=== PATIENT | female | born 1930 | race Asian ===

== ENCOUNTER 2018-05-07 09:51 | Observation (INO) | payer MEDICAID, MEDICARE ==
--- NOTE | 2018-05-07 10:07 | ER Document Report ---
ED Medical Screen (RME) - General Chief Complaint: Nausea/Vomiting Stated Complaint: VOMITING/HEADACHE Time Seen by Provider: 05/07/18 09:58 Mode of Arrival: Wheelchair Information source: Relative Notes: This is an 87-year-old Georgian speaking woman who is brought in by her daughter because of agitation, vomiting. The patient was recently brought here 2 weeks ago from [place]. She is reportedly on a number of medicines and the daughter feels she was abusing those medicines prepped (particularly the sleeping pills) and the daughter states she is been up all night, yelling and screaming, searching for the sleeping pills. She also reports that her mother has had persistent vomiting and is not tolerating p.o. They also state that she has been complaining of a headache. The daughter is unable to tell me what medical problems the patient has. It does sound like there is some dementia and process. The daughter will be going home to get all of the medicines that the patient was on in [place]. She has no allergies. They deny any significant surgeries. They just started seeing Dr. Davis 2 weeks ago. I have greeted and performed a rapid initial assessment of this patient. A comprehensive ED assessment and evaluation of the patient, analysis of test results and completion of medical decision making process we will be contacted by additional ED providers. TRAVEL OUTSIDE OF THE [place] IN LAST 30 DAYS: No - Related Data Allergies/Adverse Reactions: No Known Allergies Allergy (Verified 05/07/18 09:52) Past Medical History - Social History Chew tobacco use (# tins/day): No Frequency of alcohol use: None Drug Abuse: None Renal/ Medical History: Denies: Hx Peritoneal Dialysis Physical Exam - Vital signs Vitals: Temp Pulse Resp BP Pulse Ox 97.9 F 81 16 125/72 97 05/07/18 09:58 05/07/18 09:58 05/07/18 09:58 05/07/18 09:58 05/07/18 09:58 Course - Vital Signs Vital signs: Temp Pulse Resp BP Pulse Ox 97.9 F 81 16 125/72 97 05/07/18 09:58 05/07/18 09:58 05/07/18 09:58 05/07/18 09:58 05/07/18 09:58 Doctor's Discharge - Discharge Referrals: LOCAL,NO [Primary Care Provider] - Follow up as needed
[2018-05-07] MEDS ORDERED: ONDANSETRON 4 MG TAB.RAPDIS PO ONE (10:08)
--- NOTE | 2018-05-07 10:40 | ER Document Report ---
ED General - General Chief Complaint: Nausea/Vomiting Stated Complaint: VOMITING/HEADACHE Time Seen by Provider: 05/07/18 09:58 Mode of Arrival: Wheelchair Information source: Patient, Relative Notes: 87-year-old female history of dementia and some type of lung mass presents having moved from [place] 2 weeks ago to live with daughters who note that she has been very agitated at nighttime threatening family members if she does not get her sleeping medication. Patient is noted to have some type of cardiac history but daughters are unsure exactly what They do note nausea vomiting. They state patient has headaches whenever she does not get her sleeping medication pt noted to be weak TRAVEL OUTSIDE OF THE [place] IN LAST 30 DAYS: No - HPI Onset: Last week Onset/Duration: Persistent Quality of pain: Cramping Severity: Mild Pain Level: 1 Associated symptoms: Headache, Nausea, Vomiting, Weakness Exacerbated by: Denies Relieved by: Other - sleeping medications Similar symptoms previously: No Recently seen / treated by doctor: No - Related Data Allergies/Adverse Reactions: No Known Allergies Allergy (Verified 05/07/18 09:52) Past Medical History - General Information source: Relative - Social History Smoking Status: Never Smoker Cigarette use (# per day): No Chew tobacco use (# tins/day): No Smoking Education Provided: No Frequency of alcohol use: None Drug Abuse: None Family History: Reviewed & Not Pertinent Patient has suicidal ideation: No Patient has homicidal ideation: No - Past Medical History Cardiac Medical History: Reports: Hx Hypercholesterolemia, Hx Hypertension Renal/ Medical History: Denies: Hx Peritoneal Dialysis Psychiatric Medical History: Reports: Hx Depression Review of Systems - Review of Systems Notes: REVIEW OF SYSTEMS: Per family members who are translating for her, they refused official translators CONSTITUTIONAL : Denies fever, chills, or sweats. Denies recent illness. EENT: Denies eye, ear, throat, or mouth pain or symptoms. Denies nasal or sinus congestion or discharge. Denies throat, tongue, or mouth swelling or difficulty swallowing. CARDIOVASCULAR: Denies chest pain. Denies palpitations or racing or irregular heart beat. Denies ankle edema. RESPIRATORY: Denies cough, cold, or chest congestion. Denies shortness of breath, difficulty breathing, or wheezing. GASTROINTESTINAL: admits ot nausea vomiting GENITOURINARY: Denies difficulty urinating, painful urination, burning, frequency, blood in urine, or discharge. FEMALE GENITOURINARY: Denies vaginal bleeding, heavy or abnormal periods, irregular periods. Denies vaginal discharge or odor. MUSCULOSKELETAL: Denies back or neck pain or stiffness. Denies joint pain or swelling. SKIN: Denies rash, lesions or sores. HEMATOLOGIC : Denies easy bruising or bleeding. LYMPHATIC: Denies swollen, enlarged glands. NEUROLOGICAL: afmits ot headache, weakness PSYCHIATRIC: Denies anxiety or stress. Denies depression, suicidal ideation, or homicidal ideation. ALL OTHER SYSTEMS REVIEWED AND NEGATIVE. PHYSICAL EXAMINATION: GENERAL: elderly female HEAD: Atraumatic, normocephalic. EYES: Pupils equal round and reactive to light, extraocular movements intact, conjunctiva are normal. ENT: Nares patent, oropharynx clear without exudates. Moist mucous membranes. NECK: Normal range of motion, supple without lymphadenopathy LUNGS: Breath sounds clear to auscultation bilaterally and equal. No wheezes rales or rhonchi. HEART: Regular rate and rhythm without murmurs ABDOMEN: Soft, nontender, nondistended abdomen. No guarding, no rebound. No masses appreciated. Female : deferred Musculoskeletal: Normal range of motion, no pitting or edema. No cyanosis. NEUROLOGICAL: Cranial nerves grossly intact. Normal speech, normal gait. Normal sensory, motor exams pt noted to be weak, did feel unable to stand for xray PSYCH: Normal mood, normal affect. SKIN: Warm, Dry, normal turgor, no rashes or lesions noted. Dictation was performed using [employer] voice recognition software Physical Exam - Vital signs Vitals: Temp Pulse Resp BP Pulse Ox 97.9 F 81 16 125/72 97 05/07/18 09:58 05/07/18 09:58 05/07/18 09:58 05/07/18 09:58 05/07/18 09:58 Course - Re-evaluation Re-evalutation: 05/07/18 10:39 Significant T-wave inversions are noted, I am attempting to get records from hospital in [facility] 05/07/18 11:02 Medical records is closed on weekends, contacted ED physician, noted admission march 2018 admission for cardiac cath noting no significant stenosis. EJ fraction 68%, 2cm nodule opacity left lower lung. small pleural effusion on the right . diabetes, htn, siadh, hyperlipidemia, lung mass is stable since 2014, did not feel needed a biopsy, recommend pet scan in the future ekg 03/2018 NOTED T WAVE INVERSION IN I, avl, V4-v6, biphasic t wave in v2-v3 - Vital Signs Vital signs: Temp Pulse Resp BP Pulse Ox 98.6 F 81 16 127/78 H 97 05/07/18 14:20 05/07/18 15:12 05/07/18 15:12 05/07/18 14:20 05/07/18 15:12 - Laboratory Result Diagrams: 05/07/18 11:15 05/07/18 11:15 Laboratory results interpreted by me: 05/07/18 11:15 Sodium 134.7 L Chloride 90 L Carbon Dioxide 32 H - Diagnostic Test Radiology reviewed: Image reviewed, Reports reviewed - EKG Interpretation by Wi EKG shows normal: Sinus rhythm, Independence, Intervals, QRS Complexes - Inverted t waves deep in V2-V4 Discharge - Discharge Clinical Impression: T wave inversion in EKG Headache Qualifiers: Headache type: unspecified Headache chronicity pattern: unspecified pattern Intractability: not intractable Qualified Code(s): R51 - Headache Fatigue Qualifiers: Fatigue type: unspecified Qualified Code(s): R53.83 - Other fatigue Condition: Stable Disposition: ADMITTED OBSERVATION Admitting Provider: Hospitalist Unit Admitted: Telemetry
--- NOTE | 2018-05-07 10:47 | RADIOLOGY REPORT (SQ) ---
EXAM DESCRIPTION: CT HEAD WITHOUT COMPLETED DATE/TIME: 05/07/2018 10:36 am REASON FOR STUDY: encephalopathy COMPARISON: None. TECHNIQUE: Axial images acquired through the brain without intravenous contrast. Images reviewed wi th bone, brain and subdural windows. Images stored on PACS. All CT scanners at this facility use dose modulation, iterative reconstruction, and/or weight based d osing when appropriate to reduce radiation dose to as low as reasonably achievable (ALARA). [facility]: Dose Right [facility]: CareDose [facility]: Dose Right [facility]: Teradose 4D [facility]: Smart Farmeron RADIATION DOSE: CT Rad equipment meets quality standard of care and radiation dose reduction techniq ues were employed. CTDIvol: 53.2 mGy. DLP: 1017 mGy-cm. mGy. LIMITATIONS: None. FINDINGS: VENTRICLES: Normal size and contour. CEREBRUM: No masses. No hemorrhage. No midline shift. No evidence for acute infarction. There is e vidence of confluent areas of decreased attenuation in subcortical and periventricular white matter c onsistent with chronic white matter change. . No areas of low density in the white matter. CEREBELLUM: No masses. No hemorrhage. No alteration of density. No evidence for acute infarction. EXTRAAXIAL SPACES: No fluid collections. No masses. ORBITS AND GLOBE: No intra- or extraconal masses. Normal contour of globe without masses. CALVARIUM: No fracture. PARANASAL SINUSES: There is evidence of extensive mucosal thickening in the left maxillary sinus with calcification. These findings can be seen with chronic sinusitis and/or fungal sinusitis. Minimal mucosal thickening in the sphenoid sinus. SOFT TISSUES: No mass or hematoma. OTHER: No other significant finding. IMPRESSION: CHANGES OF CHRONIC SINUSITIS. CHRONIC WHITE MATTER CHANGE. OTHERWISE, NORMAL CT OF HEA D WITHOUT CONTRAST. EVIDENCE OF ACUTE STROKE: NO. COMMENT: Quality ID # [id number]: Final reports with documentation of one or more dose reduction techniques (e.g., Automated exposure control, adjustment of the mA and/or kV according to patient size, use of iterative reconstruction technique) TECHNICAL DOCUMENTATION: JOB ID: [id number] [employer]- All Rights Reserved Reading location - IP/workstation name: [email or web address]
[2018-05-07 11:28] LABS: ABSOLUTE BASOPHILS # (AUTO) 0.1 10^3/uL (0.0-0.2); ABSOLUTE EOSINOPHILS # (AUTO) 0.1 10^3/uL (0.0-0.6); ABSOLUTE MONOCYTES (AUTO) 0.5 10^3/uL (0.1-1.4); ABSOLUTE NEUT (AUTO) 6.3 10^3/uL (1.7-8.2); BASOPHILS % (AUTO) 0.6 % (0-2); EOSINOPHILS % (AUTO) 1.3 % (0-6); HEMATOCRIT 36.5 % (36.0-47.0); HEMOGLOBIN 12.9 g/dL (12.0-15.5); LYMPHOCYTES % (AUTO) 22.7 % (13-45); MEAN CORPUSCULAR HEMOGLOBIN 31.5 pg (27.0-33.4); MEAN CORPUSCULAR HGB CONC 35.4 g/dL (32.0-36.0); MEAN CORPUSCULAR VOLUME 89 fl (80-97); MONOCYTES % (AUTO) 5.8 % (3-13); PLATELET COUNT 410 10^3/uL (150-450); RED BLOOD COUNT 4.11 10^6/uL (3.72-5.28); RED CELL DISTRIBUTION WIDTH 13.9 % (11.5-14.0); SEGMENTED NEUTROPHILS % (AUTO) 69.6 % (42-78); TOTAL CELLS COUNTED % (AUTO) 100 %
[2018-05-07 11:43] LABS: AMORPHOUS SEDIMENT,URINE TRACE /HPF; APPEARANCE,URINE CLEAR; BILIRUBIN,URINE NEGATIVE (NEGATIVE); COLOR,URINE YELLOW; GLUCOSE, URINE NEGATIVE (NEGATIVE); KETONES,URINE NEGATIVE (NEGATIVE); LEUKOCYTE ESTERASE,URINE NEGATIVE (NEGATIVE); NITRITE,URINE NEGATIVE (NEGATIVE); PROTEIN,URINE NEGATIVE (NEGATIVE); URINE SPECIFIC GRAVITY 1.008; UROBILINOGEN,URINE NEGATIVE mg/dL (<2.0)
[2018-05-07 11:45] LABS: ALANINE AMINOTRANSFERASE 23 U/L (9-52); ALBUMIN 4.4 g/dL (3.5-5.0); ALKALINE PHOSPHATASE 76 U/L (38-126); ANION GAP 13 (5-19); ASPARTATE AMINO TRANSFERASE 26 U/L (14-36); BILIRUBIN,DIRECT 0.3 mg/dL (0.0-0.4); BILIRUBIN,TOTAL 0.8 mg/dL (0.2-1.3); BLOOD UREA NITROGEN 9 mg/dL (7-20); CALCIUM 10.1 mg/dL (8.4-10.2); CARBON DIOXIDE 32 mmol/L (22-30); CHLORIDE 90 mmol/L (98-107); CREATINE KINASE 97 U/L (30-135); GLUCOSE 95 mg/dL (75-110); POTASSIUM 3.7 mmol/L (3.6-5.0); SODIUM 134.7 mmol/L (137-145); TOTAL PROTEIN 7.5 g/dL (6.3-8.2)
[2018-05-07 11:56] LABS: CREATINE KINASE MB 1.23 ng/mL (<4.55)
--- NOTE | 2018-05-07 11:59 | RADIOLOGY REPORT (SQ) ---
EXAM DESCRIPTION: CHEST SINGLE VIEW COMPLETED DATE/TIME: 05/07/2018 11:30 am REASON FOR STUDY: encephalopathy, vomiting COMPARISON: None. FINDINGS: Single frontal view PA chest image. Focal density adjacent to the left heart border, suspicious for a small mass. Mild blunting right la teral costophrenic angle, acuity indeterminate. Potential small effusion. Osteopenia. No fracture or bone lesion evident. Normal heart size. IMPRESSION: Small left upper lobe mass, concerning for malignancy. TECHNICAL DOCUMENTATION: JOB ID: [id number] Reading location - IP/workstation name: [email or web address]
[2018-05-07 12:02] LABS: TROPONIN I < 0.012 ng/mL
[2018-05-07] MEDS ORDERED: LEVALBUTEROL HCL NEB 1.25 MG/3 ML AMPUL NEB PRN (14:16)
[2018-05-07] MEDS ORDERED: MAGNESIUM HYDROXIDE SUSP 30 ML UDCUP PO PRN (14:25)
[2018-05-07] MEDS ORDERED: MAG HYDROX/AL HYDROX/SIMETH SUSP 30 ML UDCUP PO PRN (14:25)
[2018-05-07] MEDS ORDERED: ONDANSETRON 4 MG TAB.RAPDIS PO PRN (14:25)
--- NOTE | 2018-05-07 15:09 | PDOC H&P ---
History of Present Illness Admission Date/PCP: Dr. Parmar Patient complains of: Headache History of Present Illness: BLOSSOM MUNOZ is a 87 year old female with limited known past medical history secondary to patient and family being poor historians. Emergency department provider was able to contact a hospital in [place] where the patient recently moved from; have verified patient has past medical history of hypertension, hyperlipidemia, diabetes, SIADH, stable lung mass (since 2014) who recently underwent cardiac catheterization in March 2018 with no significant stenosis and an ejection fraction of 68%. The patient and daughter are seen using [facility] services. The patient reports that she has felt fatigued 1 day. She reports occasional headache. She also reports intermittent nausea, without emesis, that is relieved by lying down. She denies dizziness or weakness on standing or when ambulating. She denies recent acute illness, fever, chills, chest pain, palpitation, dyspnea, cough, abdominal pain, vomiting, diarrhea and constipation. The daughter is unable to provide any further HPI. Per emergency department staff and provider, there is some concern with regard to her dependence/abuse of prescribed sleeping medications. Apparently the patient becomes agitated when these are not provided to her and the daughters have been actively working towards reducing her medications. The ED provider also reports that staff told him that the patient became weak while obtaining chest x-ray and needed assistance to sitting; the patient denies this (some question as to whether or not she has dementia that may prevent her from being able to recall). Per nursing, the patient has also been independently ambulatory x50 feet. Evaluation in the emergency department is unremarkable other than market deep T- wave inversions to V2-5. Otherwise, CBC, BMP, troponin, and urinalysis are unremarkable and head CT revealed chronic sinusitis and chronic microvascular changes. She is referred to the hospitalist service for headache, fatigue, gait instability. Past Medical History Past Medical History: Limited secondary to poor historian Cardiac Medical History: Reports: Hyperlipidema, Hypertension Pulmonary Medical History: Reports: None EENT Medical History: Reports: None Neurological Medical History: Reports: None Endocrine Medical History: Reports: Diabetes Mellitus Type 2 Renal/ Medical History: Reports: None Malignancy Medical History: Reports: Other - Left lung nodule; stable since 2014 GI Medical History: Reports: None Musculoskeltal Medical History: Reports: None Skin Medical History: Reports: None Psychiatric Medical History: Reports: Dementia - Probable, Depression, Other - Prescription medication abuse Hematology: Reports: None Infectious Medical History: Reports: None Past Surgical History Past Surgical History: Reports: Cardiac Catheterization - March 2018; no stenosis Social History Information Source: Patient, Relative, Emergency Med Personnel Lives with: Family Smoking Status: Never Smoker Frequency of Alcohol Use: None Hx Recreational Drug Use: No Hx Prescription Drug Abuse: No Family History Family History: Unable to obtain secondary to poor historian; patient and family member do not know patient's family medical history. Parental Family History Reviewed: No - Unable to obtain Children Family History Reviewed: No Sibling(s) Family History Reviewed.: No Medication/Allergy Allergies/Adverse Reactions: No Known Allergies Allergy (Verified 05/07/18 09:52) Review of Systems Constitutional: PRESENT: fatigue, headache(s), weakness. ABSENT: chills, fever( s), weight gain, weight loss Eyes: ABSENT: visual disturbances Ears: ABSENT: hearing changes Cardiovascular: ABSENT: chest pain, dyspnea on exertion, edema, orthropnea, palpitations Respiratory: ABSENT: cough, hemoptysis Gastrointestinal: PRESENT: nausea. ABSENT: abdominal pain, constipation, diarrhea, hematemesis, hematochezia, vomiting Genitourinary: ABSENT: dysuria, hematuria Musculoskeletal: ABSENT: joint swelling Integumentary: ABSENT: rash, wounds Neurological: ABSENT: abnormal gait, abnormal speech, confusion, dizziness, focal weakness, syncope Psychiatric: ABSENT: anxiety, depression, homidical ideation, suicidal ideation Endocrine: ABSENT: cold intolerance, heat intolerance, polydipsia, polyuria Hematologic/Lymphatic: ABSENT: easy bleeding, easy bruising Physical Exam Vital Signs: Temp Pulse Resp BP Pulse Ox 97.9 F 81 16 125/72 97 05/07/18 09:58 05/07/18 09:58 05/07/18 10:20 05/07/18 09:58 05/07/18 09:58 Intake & Output 05/06/18 05/07/18 05/08/18 06:59 06:59 06:59 Weight 53.9 kg General appearance: PRESENT: no acute distress, hard of hearing, well-developed , well-nourished, other Head exam: PRESENT: atraumatic, normocephalic Eye exam: PRESENT: conjunctiva pink, EOMI, PERRLA. ABSENT: scleral icterus Mouth exam: PRESENT: moist, tongue midline Neck exam: ABSENT: carotid bruit, JVD, lymphadenopathy, thyromegaly Respiratory exam: PRESENT: clear to auscultation jose, symmetrical, unlabored. ABSENT: rales, rhonchi, wheezes Cardiovascular exam: PRESENT: RRR, +S1, +S2. ABSENT: diastolic murmur, rubs, systolic murmur Pulses: PRESENT: normal dorsalis pedis pul Vascular exam: PRESENT: normal capillary refill GI/Abdominal exam: PRESENT: normal bowel sounds, soft. ABSENT: distended, guarding, mass, organolmegaly, rebound, tenderness Rectal exam: PRESENT: deferred Extremities exam: PRESENT: full ROM. ABSENT: calf tenderness, clubbing, pedal edema Neurological exam: PRESENT: alert, awake, oriented to person, oriented to place , oriented to time, oriented to situation, CN II-XII grossly intact, other - Orientation was difficult to assess despite use of beaming machine operator; appears to be easily confused and forgetful.. ABSENT: motor sensory deficit Psychiatric exam: PRESENT: flat affect, other - Difficult to assess secondary to cultural differences. ABSENT: homicidal ideation, suicidal ideation Skin exam: PRESENT: dry, intact, warm. ABSENT: cyanosis, rash Results Laboratory Results: 05/07/18 11:15 05/07/18 11:15 05/07/18 05/07/18 05/07/18 11:12 11:15 11:15 WBC 9.0 RBC 4.11 Hgb 12.9 Hct 36.5 MCV 89 MCH 31.5 MCHC 35.4 RDW 13.9 Plt Count 410 Seg Neutrophils % 69.6 Lymphocytes % 22.7 Monocytes % 5.8 Eosinophils % 1.3 Basophils % 0.6 Absolute Neutrophils 6.3 Absolute Lymphocytes 2.0 Absolute Monocytes 0.5 Absolute Eosinophils 0.1 Absolute Basophils 0.1 Sodium 134.7 L Potassium 3.7 Chloride 90 L Carbon Dioxide 32 H Anion Gap 13 BUN 9 Creatinine 0.62 Est GFR ( Amer) > 60 Est GFR (Non-Af Amer) > 60 Glucose 95 Calcium 10.1 Magnesium 2.1 Total Bilirubin 0.8 AST 26 ALT 23 Alkaline Phosphatase 76 Total Protein 7.5 Albumin 4.4 Urine Color YELLOW Urine Appearance CLEAR Urine pH 7.0 Ur Specific [place] 1.008 Urine Protein NEGATIVE Urine Glucose (UA) NEGATIVE Urine Ketones NEGATIVE Urine Blood NEGATIVE Urine Nitrite NEGATIVE Ur Leukocyte Esterase NEGATIVE Urine WBC (Auto) 0 Urine RBC (Auto) 0 05/07/18 05/07/18 11:15 11:15 Creatine Kinase 97 CK-MB (CK-2) 1.23 Troponin I < 0.012 Impressions: Chest X-Ray 05/07/18 10:07 IMPRESSION: Small left upper lobe mass, concerning for malignancy. Head CT 05/07/18 10:07 IMPRESSION: CHANGES OF CHRONIC SINUSITIS. CHRONIC WHITE MATTER CHANGE. OTHERWISE, NORMAL CT OF HEAD WITHOUT CONTRAST. EVIDENCE OF ACUTE STROKE: NO. Assessment & Plan - Diagnosis (1) Fatigue Qualifiers: Fatigue type: unspecified Qualified Code(s): R53.83 - Other fatigue Is this a current diagnosis for this admission?: Yes Plan: The patient reports fatigue. Despite use of beaming machine operator; is difficult to obtain clear HPI and the daughter is unable to provide any further information. There is a report of potential sleeping medication abuse. The patient also appears to have difficulty with organized thinking; becoming easily confused and forgetful. Fatigue may be related to age, heart conditions (unknown if patient has CHF although does not appear to have acute decompensation at present), medication interactions/side effects, medication overuse, hypothyroidism, depression, dementia, etc. CBC and BMP are unremarkable EKG shows normal sinus with some nonspecific T-wave changes. Head CT demonstrated chronic sinusitis and microvascular changes. Patient is admitted to the medical floor on continuous cardiac telemetry. Will obtain TSH with a.m. labs. Will rule out drug abuse; obtain UDS. We will resume patient's medications once reconciled; assessing for side effects and interactions. PT/OT consultation has been ordered. Provide for patient safety. (2) Headache Qualifiers: Headache chronicity pattern: unspecified pattern Intractability: not intractable Is this a current diagnosis for this admission?: Yes Plan: Patient and daughter report intermittent headache, primarily related to lack of (presumed) Ambien use. The patient is unable to describe the quality, location , intensity, exacerbating or alleviating factors of her headache. CBC and BMP are unremarkable EKG shows normal sinus with some nonspecific T-wave changes. Head CT demonstrated chronic sinusitis and microvascular changes. Patient is admitted to the medical floor on continuous cardiac telemetry. Will obtain TSH with a.m. labs. As the patient has a known lung nodule, will obtain MRI of the brain. Supportive care: Analgesics and antiemetics as needed. Avoid opiate medications (potential for rebound headache) and sedatives/ benzodiazepines. (3) Chronic sinusitis Qualifiers: Sinusitis location: maxillary Qualified Code(s): J32.0 - Chronic maxillary sinusitis Is this a current diagnosis for this admission?: Yes Plan: Likely contributing to headache. Mucosal thickening and calcifications of the maxillary sinuses were noted by head CT. We will provide the patient normal saline spray for comfort. Start Flonase. Tylenol as needed for pain. Avoid opiates. Consider antihistamines. Outpatient ENT follow-up. (4) T wave inversion in EKG Is this a current diagnosis for this admission?: Yes Plan: EKG demonstrated marketed T-wave inversions in V2-5. No previous EKGs are available for direct comparison. However, ED physician did reach out to a hospital in [place] where the patient was recently seen. Per ED provider's report, there may be some nonspecific T-wave changes since March 2018. The patient underwent cardiac catheterization March 2018; no significant stenosis were identified and no stents placed. LVEF noted to be 68%. Chest x-ray today is benign. CK, CK-MB, troponin are all negative. Patient denies active or recent chest pain, dyspnea, orthopnea. Will monitor on telemetry. Resume home cardiac medications once reconciled. (5) Lung nodule Is this a current diagnosis for this admission?: Yes Plan: Per ED report, he has confirmed the left lung nodule has been present and stable since 2014. It appears that a previous provider (located in [place]) is recommended outpatient follow-up with a PET scan. Patient is being evaluated with a head MRI; will rule out metastasis to the brain. We will provide the patient and family members a referral to oncology for outpatient follow-up. (6) Sedative or hypnotic abuse Is this a current diagnosis for this admission?: Yes Plan: Per nursing staff, the patient's family members reported a recent history of sleeping medication abuse. The patient has been moved from [place] to live here with her daughters and ordered for the daughters to manage the medications. Since that time, the patient has been agitated and confrontational with a limit her access to her sleeping medications. Otherwise , the patient remains fatigued and complains of headaches, weakness, and nausea when her medication is withheld. Patient has been in [place] for approximately 2 weeks; it is unlikely that she is still experiencing withdrawal. I am more inclined to think that the patient may be suffering from depression. Unfortunately, full psychiatric assessment is very difficult due to language barrier and cultural differences. Initial impression also leads me to think that the patient may have some underlying dementia. Avoid opiates, benzodiazepines, and hypnotic/sedatives. We will trial trazodone. Consider psychiatric evaluation. - Time Time Spent: 50 to 70 Minutes Medications reviewed and adjusted accordingly: Yes Anticipated discharge: Home Within: within 24 hours
--- NOTE | 2018-05-07 15:35 | RADIOLOGY REPORT (SQ) ---
EXAM DESCRIPTION: MRI HEAD WITHOUT COMPLETED DATE/TIME: 05/07/2018 3:17 pm REASON FOR STUDY: headache COMPARISON: None. TECHNIQUE: Multiplanar imaging includes non-contrasted T1, T2, FLAIR, and Diffusion with ADC map seq uences. Images stored on PACS. LIMITATIONS: Some of the sequences are moderately limited by motion. FINDINGS: ANATOMY: No anomalies. Normal vascular flow voids. Pituitary fossa normal. CSF SPACES: Normal in size and contour. No hemorrhage. CEREBRUM: A few high-signal intensity lesions scattered throughout the white matter on FLAIR imaging with distribution suggesting chronic micro-vascular ischemic change. Sulci and gyri normal in size a nd contour. No evidence of hemorrhage, mass or extraaxial fluid collection. POSTERIOR FOSSA: No signal alteration. No hemorrhage. No edema, masses or mass effect. Internal fatoumata tory canals, cerebello-pontine angles, mastoids normal. DIFFUSION: Small intermediate T1 slightly hyperintense T2 mass with suggested dural tail along the ri ght aspect of the clivus. Potential meningioma. No mass effect on regional structures. ORBITS: No masses. Globes normal. PARANASAL SINUSES: Mucosal thickening, most notable in the left maxillary sinus. No fluid levels. OTHER: No other significant finding. IMPRESSION: 1. No recent CVA. No acute abnormality detected. Mild small vessel disease. 2. Potent ial meningioma along the right skullbase. Doubtful clinical significance. Further evaluation with p ost IV contrast imaging may prove helpful to confirm the lesion. Given the patient's limited coopera tion and ability to remain still during MRI, post contrast CT may be a better option for further imag ing. 3. Chronic appearing paranasal sinus disease. EVIDENCE OF ACUTE STROKE: NO. TECHNICAL DOCUMENTATION: JOB ID: [id number] [employer]- All Rights Reserved Reading location - IP/workstation name: [email or web address]
[2018-05-07 15:55] LABS: URINE AMPHETAMINES SCREEN NEGATIVE; URINE BARBITURATES SCREEN NEGATIVE; URINE BENZODIAZEPINES SCREEN NEGATIVE; URINE COCAINE SCREEN NEGATIVE; URINE MARIJUANA (THC) SCREEN NEGATIVE; URINE METHADONE SCREEN NEGATIVE; URINE PHENCYCLIDINE SCREEN NEGATIVE
[2018-05-07] MEDS ORDERED: LORAZEPAM 1 MG TABLET PO PRN (18:02)
--- NOTE | 2018-05-07 19:40 | RADIOLOGY REPORT (SQ) ---
EXAM DESCRIPTION: MRI HEAD WITH COMPLETED DATE/TIME: 05/07/2018 6:41 pm REASON FOR STUDY: headache, dizziness, f/u new meningioma COMPARISON: Noncontrast study from earlier today. TECHNIQUE: Multiplanar imaging includes postgadolinium contrast T1 sequences. Images stored on PACS. CONTRAST TYPE AND DOSE: 10 mL Multihance. RENAL FUNCTION: GFR > 60. LIMITATIONS: None. FINDINGS: The limited post contrast images confirm an enhancing dural-based mass along the right sku llbase without mass effect on adjacent structures. This measures up to 1.4 cm maximally with a small enhancing dural tail. This is consistent with a meningioma. No other areas of abnormal enhancement. Images are mildly limited by motion. IMPRESSION: 1. Small skullbase mass is confirmed, compatible with a meningioma. No suspicious lesi ons. EVIDENCE OF ACUTE STROKE: NO. TECHNICAL DOCUMENTATION: JOB ID: [id number] [employer]- All Rights Reserved Reading location - IP/workstation name: [email or web address]
[2018-05-07] MEDS: ACETAMINOPHEN 325 MG TABLET PO PRN (20:35)
[2018-05-07] MEDS ORDERED: TRAZODONE HCL 50 MG TABLET PO SCH (22:00)
[2018-05-07] MEDS: FAMOTIDINE 20 MG TABLET PO SCH (22:43)
[2018-05-07] MEDS: HEPARIN SOD (PORCINE) 5,000 UNIT/ML 1 ML SYRINGE SUBCUT SCH (22:43)
[2018-05-08] MEDS: HEPARIN SOD (PORCINE) 5,000 UNIT/ML 1 ML SYRINGE SUBCUT SCH (06:14)
[2018-05-08 07:30] LABS: HEMATOCRIT 33.9 % (36.0-47.0); MEAN CORPUSCULAR HEMOGLOBIN 31.6 pg (27.0-33.4); MEAN CORPUSCULAR HGB CONC 35.5 g/dL (32.0-36.0); MEAN CORPUSCULAR VOLUME 89 fl (80-97); PLATELET COUNT 370 10^3/uL (150-450); WHITE BLOOD COUNT 6.8 10^3/uL (4.0-10.5)
--- NOTE | 2018-05-08 07:42 | EKG REPORT ---
SEVERITY:- ABNORMAL ECG - SINUS RHYTHM CONSIDER ANTEROSEPTAL INFARCT ABNORMAL T, CONSIDER ISCHEMIA, ANT-LAT LEADS : Confirmed by: Josh Torres MD 08-May-2018 07:41:44
--- NOTE | 2018-05-08 07:43 | EKG REPORT ---
SEVERITY:- ABNORMAL ECG - SINUS RHYTHM ABNORMAL T, CONSIDER ISCHEMIA, ANT-LAT LEADS BORDERLINE PROLONGED QT INTERVAL : Confirmed by: Josh Torres MD 08-May-2018 07:42:01
[2018-05-08 08:03] LABS: ANION GAP 11 (5-19); BLOOD UREA NITROGEN 14 mg/dL (7-20); CALCIUM 9.6 mg/dL (8.4-10.2); CARBON DIOXIDE 30 mmol/L (22-30); CHLORIDE 93 mmol/L (98-107); CHOLESTEROL 129.32 mg/dL (0-200); GLUCOSE 85 mg/dL (75-110); POTASSIUM 4.2 mmol/L (3.6-5.0); SODIUM 133.6 mmol/L (137-145); TRIGLYCERIDES 134 mg/dL (<150)
[2018-05-08 08:15] LABS: DIRECT LDL 46 mg/dL (<100)
[2018-05-08] MEDS: ACETAMINOPHEN 325 MG TABLET PO PRN (09:12)
[2018-05-08] MEDS: FAMOTIDINE 20 MG TABLET PO SCH (09:13)
[2018-05-08] MEDS ORDERED: FLUTICASONE NASAL SPRAY 50 MCG/SPRY 120 SPRAY/16 GM NASL SCH (10:00)
[2018-05-08] MEDS ORDERED: DOCUSATE SODIUM 100 MG CAPSULE PO SCH (10:00)
[2018-05-08 15:49] VITALS: BP 107/61
--- NOTE | 2018-05-08 22:11 | PDOC DISCHARGE SUMMARY ---
General - Admit/Disc Date/PCP Admission Date/Primary Care Provider: 05/07/18 13:11 Discharge Date: 05/08/18 - Discharge Diagnosis (1) Fatigue Is this a current diagnosis for this admission?: Yes (2) Dementia Is this a current diagnosis for this admission?: Yes (3) Headache Is this a current diagnosis for this admission?: Yes (4) Chronic sinusitis Is this a current diagnosis for this admission?: Yes (5) T wave inversion in EKG Is this a current diagnosis for this admission?: Yes (6) Lung nodule Is this a current diagnosis for this admission?: Yes (7) Sedative or hypnotic abuse Is this a current diagnosis for this admission?: Yes - Additional Information Resuscitation Status: Full Code Discharge Diet: Regular Discharge Activity: Activity As Tolerated, Balance Activity w/Rest Prescriptions: Buspirone HCl [Buspar 5 mg Tablet] 1 tab PO ASDIR PRN #90 tab PRN Reason: Docusate Sodium [Colace 100 mg Capsule] 100 mg PO BIDP PRN #60 capsule PRN Reason: Fluticasone Propionate [Flonase Nasal Portales 50 Mcg/Portales 16 gm] 2 spray NASL DAILY #1 spray.pump Risperidone [Risperdal 0.25 Mg Tablet] 0.25 mg PO QHS #30 tablet Home Medications: Acetaminophen [Tylenol 325 mg Tablet] 650 mg PO Q4HP PRN tablet 05/08/18 Acetaminophen [Tylenol] 325 mg PO TID 05/08/18 Atorvastatin Calcium [Lipitor 20 mg Tablet] 20 mg PO QHS 05/08/18 Buspirone HCl [Buspar 5 mg Tablet] 1 tab PO ASDIR PRN #90 tab 05/08/18 Clopidogrel Bisulfate [Plavix 75 mg Tablet] 75 mg PO DAILY 05/08/18 Docusate Sodium [Colace 100 mg Capsule] 100 mg PO BIDP PRN #60 capsule 05/08/18 Fluticasone Propionate [Flonase Nasal Portales 50 Mcg/Portales 16 gm] 2 spray NASL DAILY #1 spray.pump 05/08/18 Gabapentin [Neurontin 100 mg Capsule] 100 mg PO Q8 05/08/18 Linaclotide [Linzess] 72 mcg PO DAILY 05/08/18 Omeprazole 40 mg PO DAILY 05/08/18 Risperidone [Risperdal 0.25 Mg Tablet] 0.25 mg PO QHS #30 tablet 05/08/18 History of Present Illness History of Present Illness: BLOSSOM MURRAY is a 87 year old female with limited known past medical history secondary to patient and family being poor historians. Emergency department provider was able to contact a hospital in [place] where the patient recently moved from; have verified patient has past medical history of hypertension, hyperlipidemia, diabetes, SIADH, stable lung mass (since 2014) who recently underwent cardiac catheterization in March 2018 with no significant stenosis and an ejection fraction of 68%. The patient and daughter are seen using [employer] translating services. The patient reports that she has felt fatigued 1 day. She reports occasional headache. She also reports intermittent nausea, without emesis, that is relieved by lying down. She denies dizziness or weakness on standing or when ambulating. She denies recent acute illness, fever, chills, chest pain, palpitation, dyspnea, cough, abdominal pain, vomiting, diarrhea and constipation. The daughter is unable to provide any further HPI. Per emergency department staff and provider, there is some concern with regard to her dependence/abuse of prescribed sleeping medications. Apparently the patient becomes agitated when these are not provided to her and the daughters have been actively working towards reducing her medications. The ED provider also reports that staff told him that the patient became weak while obtaining chest x-ray and needed assistance to sitting; the patient denies this (some question as to whether or not she has dementia that may prevent her from being able to recall). Per nursing, the patient has also been independently ambulatory x50 feet. Evaluation in the emergency department is unremarkable other than market deep T- wave inversions to V2-5. Otherwise, CBC, BMP, troponin, and urinalysis are unremarkable and head CT revealed chronic sinusitis and chronic microvascular changes. She is referred to the hospitalist service for headache, fatigue, gait instability. 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 The patient's daughter, Jewel Murray, provides most of the information. She reports that her mother was recently moved from [place] due to concern of possible accidental medication overdose. They have noted since her move to [place], approximately 2 weeks ago, her mother has complained of frequent fatigue, generalized weakness, headaches, and difficulty sleeping. She reports that her mother wants to sleep throughout the day and then is awake throughout the night with behavior disturbances; increased confusion, agitation, yelling, etc.. Evaluation included: CBC and BMP were unremarkable. Normal TSH. EKG showed normal sinus with some nonspecific T-wave changes. CK, CK-MG, and troponins were negative. Information from previous hospital admission (in [place]) was obtained: The patient underwent cardiac catheterization March 2018; no significant stenosis were identified and no stents placed. LVEF at that time was noted to be 68%. Chest x-ray was benign other than the established right lung nodule which has been stable since 2014. Head CT demonstrated chronic sinusitis and microvascular changes. Urinalysis and Urine drug screen were negative. Head CT demonstrated chronic sinusitis and microvascular changes of the brain. MRI of the head w/wo demonstrated a small skull soliman mass compatible with menigioma, but no acute stroke or other suspicious lesions were identified. The patient was admitted to the medical floor on continuous cardiac telemetry. A thorough work up was completed as outlined above. The patient was placed on flonase and nasal saline spray for chronic sinusitis that may be contributing to her persistent headaches. The patient was evaluated by physical and occupational therapy; she was found to be independent and no recommendations for continued therapy were made. A long discussion was had with the family members regarding the patient's symptoms most likely being attributed to her advanced dementia. The family was in agreement with much of what was described (acute worsening following move to new location, symptoms of sundowning). They were agreeable to home health nursing for continued support as they learn to help manage their mother at home. They were offered assistance in SENIOR CARE/SNF placement, but declined at this time. At time of discharge, the patient was in stable condition. She was awake and orientated to her baseline. She reported fatigue, but denied all other symptoms. She was provided a prescription for Buspar twice daily and low dose Risperadone as needed for agitation at night. They were advised to follow up with the primary care provider within 1 week. They were also provided referrals to Pulmonology and Neurology for follow up on abnormal imaging results. Physical Exam Vital Signs: Temp Pulse Resp BP Pulse Ox 98.2 F 75 14 107/61 99 05/08/18 16:27 05/08/18 16:27 05/08/18 16:27 05/08/18 16:27 05/08/18 16:27 Intake & Output 05/07/18 05/08/1818 06:59 06:59 06:59 Intake Total 872 Balance 872 Weight 56.9 kg General appearance: PRESENT: no acute distress, cooperative, well-developed, well-nourished, other - Overweight Head exam: PRESENT: atraumatic, normocephalic Eye exam: PRESENT: conjunctiva pink, EOMI, PERRLA. ABSENT: scleral icterus Ear exam: PRESENT: normal external ear exam Mouth exam: PRESENT: moist, tongue midline Neck exam: ABSENT: carotid bruit, JVD, lymphadenopathy, thyromegaly Respiratory exam: PRESENT: clear to auscultation jose. ABSENT: rales, rhonchi, wheezes Cardiovascular exam: PRESENT: RRR. ABSENT: diastolic murmur, rubs, systolic murmur Pulses: PRESENT: normal dorsalis pedis pul Vascular exam: PRESENT: normal capillary refill GI/Abdominal exam: PRESENT: normal bowel sounds, soft. ABSENT: distended, guarding, mass, organolmegaly, rebound, tenderness Rectal exam: PRESENT: deferred Extremities exam: PRESENT: full ROM. ABSENT: calf tenderness, clubbing, pedal edema Neurological exam: PRESENT: alert, awake, oriented to person, oriented to place , CN II-XII grossly intact, other - Pleasantly confused; at baseline per family. ABSENT: oriented to time, oriented to situation, motor sensory deficit Psychiatric exam: PRESENT: normal mood. ABSENT: homicidal ideation, suicidal ideation Skin exam: PRESENT: dry, intact, warm. ABSENT: cyanosis, rash Results Laboratory Results: 05/08/18 06:10 05/08/18 06:10 05/08/18 05/08/18 05/08/18 06:10 06:10 06:10 WBC 6.8 RBC 3.80 Hgb 12.0 Hct 33.9 L MCV 89 MCH 31.6 MCHC 35.5 RDW 14.0 Plt Count 370 Sodium 133.6 L Potassium 4.2 Chloride 93 L Carbon Dioxide 30 Anion Gap 11 BUN 14 Creatinine 0.73 Est GFR ( Amer) > 60 Est GFR (Non-Af Amer) > 60 Glucose 85 Calcium 9.6 Triglycerides 134 Cholesterol 129.32 LDL Cholesterol Direct 46 VLDL Cholesterol 27.0 HDL Cholesterol 61 TSH 1.71 05/08/18 10:10 Troponin I < 0.012 Impressions: Head MRI 05/07/18 00:00 IMPRESSION: 1. Small skullbase mass is confirmed, compatible with a meningioma. No suspicious lesions. EVIDENCE OF ACUTE STROKE: NO. Chest X-Ray 05/07/18 10:07 IMPRESSION: Small left upper lobe mass, concerning for malignancy. Head CT 05/07/18 10:07 IMPRESSION: CHANGES OF CHRONIC SINUSITIS. CHRONIC WHITE MATTER CHANGE. OTHERWISE, NORMAL CT OF HEAD WITHOUT CONTRAST. EVIDENCE OF ACUTE STROKE: NO. Qualifiers - * PATIENT BEING DISCHARGED WITH ANY OF THE FOLLOWING DIAGNOSIS: No Plan Discharge Plan: Discharge to home with Home Health nursing. Follow up with primary care provider within 1 week. Follow up with Neurology within 4-6 weeks. Follow up with Pulmonology within 4-6 weeks.
== END 2018-05-08 17:44 | disposition home or self-care (01) ==
LOC: ER 09:51 → EH 13:11 → 4N 16:21
PROVIDERS: ADMIT Internal Medicine; ATTEND Internal Medicine
DX: R53.83 Other fatigue (principal); F03.90 Unspecified dementia, unspecified severity, without behavioral disturbance, psychotic disturbance, mood disturbance, and anxiety; R51 Headache; J32.0 Chronic maxillary sinusitis; R94.31 Abnormal electrocardiogram [ECG] [EKG]; R91.1 Solitary pulmonary nodule; F13.10 Sedative, hypnotic or anxiolytic abuse, uncomplicated; E78.5 Hyperlipidemia, unspecified; R53.1 Weakness; R22.0 Localized swelling, mass and lump, head; R11.2 Nausea with vomiting, unspecified; J90 Pleural effusion, not elsewhere classified; R45.1 Restlessness and agitation; G47.9 Sleep disorder, unspecified; Z86.39 Personal history of other endocrine, nutritional and metabolic disease
CPT/HCPCS: 93005 ×2; 99285; 51701; 36415 ×2; 82553; 82550; 83735; 84443; 85025; 85027; 80048; 80053; 81001; 84484 ×2; 80307; 83036; 80061; 70551; 70552; 71045; 70450; 93010 ×2; 97116; 97163; 97165; G0378 ×3; A9577; J1644 ×2; S0119 ×2; J3490 ×2

== ENCOUNTER → 2018-10-11 | Outpatient (CLI) | payer MEDICARE, OTHER ==
--- NOTE | 2018-10-11 13:53 | RADIOLOGY REPORT (SQ) ---
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 Contrast enhanced T1 images. Images stored on PACS. CONTRAST TYPE AND DOSE: 10 mL Dotarem. RENAL FUNCTION: GFR > 60. LIMITATIONS: None. FINDINGS: ANATOMY: No anomalies. Normal vascular flow voids. Pituitary fossa normal. CSF SPACES: Normal size and contour. No hemorrhage. CEREBRUM: Old lacunar infarct right internal capsule. A few high-signal intensity lesions scattered throughout the white matter on FLAIR imaging with distribution suggesting chronic microvascular ische rickey change. Sulci and gyri normal in size and contour. No evidence of hemorrhage, mass or extraaxial fluid collection. No enhancing lesions. POSTERIOR FOSSA: Unchanged right skullbase cerebellopontine angle mass measuring about 1.3 x 0.7 cm A P by transverse diameter. DIFFUSION: Negative for acute or subacute infarction. ORBITS: No masses. Globes normal. PARANASAL SINUSES: No fluid levels. OTHER: No other significant finding. IMPRESSION: Unchanged right skullbase meningioma. No acute findings. EVIDENCE OF ACUTE STROKE: NO. TECHNICAL DOCUMENTATION: JOB ID: [id number] [employer]- All Rights Reserved Reading location - IP/workstation name: [email or web address]
--- NOTE | 2018-10-11 14:12 | RADIOLOGY REPORT (SQ) ---
EXAM DESCRIPTION: CT CHEST WITHOUT COMPLETED DATE/TIME: 10/11/2018 1:36 pm REASON FOR STUDY: LUNG MASS R91.8 OTHER NONSPECIFIC ABNORMAL FINDING OF LUNG FIELD D32.0 BENIGN JERAMY PLASM OF CEREBRAL MENINGES R91.8 OTHER NONSPECIFIC ABNORMAL FINDING OF LUNG FIELD R93.0 ABNORMAL FI NDINGS ON DX IMAGING OF SKULL AND HEAD, NEC COMPARISON: None. TECHNIQUE: CT scan performed of the chest without intravenous contrast. Images reviewed with lung, soft tissue and bone windows. Reconstructed coronal and sagittal MPR images reviewed. All images st ored on PACS. All CT scanners at this facility use dose modulation, iterative reconstruction, and/or weight based d osing when appropriate to reduce radiation dose to as low as reasonably achievable (ALARA). [facility]: Dose Right [facility]: CareDose [facility]: Dose Right [facility]: Teradose 4D [facility]: [employer] RADIATION DOSE: CT Rad equipment meets quality standard of care and radiation dose reduction techniq ues were employed. CTDIvol: 4.9 mGy. DLP: 175 mGy-cm. mGy. LIMITATIONS: No technical limitations. FINDINGS: LUNGS AND PLEURA: 3.4 x 3.6 cm mass in the lingula. Subcentimeter coalesced nodules in th e middle lobe. Calcified pleural plaque right lung. No effusions. HILAR AND MEDIASTINAL STRUCTURES: No identified masses or abnormal nodes. No obvious aneurysm. HEART AND VASCULAR STRUCTURES: Mildly dilated ascending aorta 4.0 cm. UPPER ABDOMEN: No significant findings. Limited exam. THYROID AND OTHER SOFT TISSUES: No masses. No adenopathy. BONES: No acute findings. HARDWARE: None in the chest. OTHER: No other significant findings. IMPRESSION: 3.5 cm lung mass suspicious for malignancy. TECHNICAL DOCUMENTATION: JOB ID: [id number] Quality ID # [id number]: Final reports with documentation of one or more dose reduction techniques (e.g., Au tomated exposure control, adjustment of the mA and/or kV according to patient size, use of iterative reconstruction technique) 2010 [employer]- All Rights Reserved Reading location - IP/workstation name: [email or web address]
== END ==
LOC: RAD 13:14
PROVIDERS: ATTEND Obstetrics & Gynecology
DX: R91.8 Other nonspecific abnormal finding of lung field (principal); D32.0 Benign neoplasm of cerebral meninges; R93.0 Abnormal findings on diagnostic imaging of skull and head, not elsewhere classified
CPT/HCPCS: 82565; 70553; 71250; A9576